=== PATIENT | male | born 1965 | race Two or more races ===

== ENCOUNTER 2018-03-28 07:03 | Emergency (ER) | payer OTHER ==
[~2018-03-28] VITALS: Ht 172.7 cm; Wt 90.9 kg
[2018-03-28 07:08] VITALS: Ht 172.7 cm; Wt 90.9 kg
[2018-03-28 07:32] LABS: BASOPHIL % 0.3 % (0-2); PLATELET COUNT 312 x10^3mcL (130-400); RED CELL DISTRIBUTION WIDTH 12.8 % (11.5-14.5)
[2018-03-28 07:54] LABS: CARBON DIOXIDE 26.8 mmol/L (21-32); CHLORIDE SERUM 103 mmol/L (98-107); CREATININE SERUM 0.8 mg/dL (0.7-1.3); GFR1 > 60 mL/min; GLUCOSE SERUM 116 mg/dL (74-106); POTASSIUM SERUM 3.7 mmol/L (3.5-5.1); SODIUM SERUM 136 mmol/L (136-145)
[2018-03-28 10:48] VITALS: BP 165/93
== END 2018-03-28 11:07 | disposition home or self-care (01) ==
LOC: ED 07:03
PROVIDERS: Emergency Medicine
DX: R07.89 Other chest pain (principal)
CPT/HCPCS: 36415; 85378; J1885; J7030; Q0092